=== PATIENT | male | born 1970 | race African-American/Black ===

== ENCOUNTER 2017-07-13 16:30 | Outpatient (CLI) | payer OTHER ==
--- NOTE | 2017-07-13 18:02 | RAD ---
LEFT SHOULDER THREE VIEWS: HISTORY: Left shoulder pain. Injury several years ago. TECHNIQUE: AP internal, external, and scapular Y views of the left shoulder are obtained. FINDINGS: Three views of the left shoulder demonstrate no evidence of left shoulder fractures, subluxations, or bony lesions. IMPRESSION: Normal three views left shoulder. POS: [facility]
== END 2017-07-13 16:31 | disposition home or self-care (01) ==
LOC: SCSRAD 16:30
PROVIDERS: ATTEND Family Medicine
DX: M25.512 Pain in left shoulder (principal)